=== PATIENT | female | born 1930 | race Caucasian/White ===

== ENCOUNTER 2017-12-13 12:51 | Emergency (ER) | payer MEDICARE, OTHER ==
[2017-12-13 12:57] VITALS: BP 147/63; PULSE 54; RESP 20; TEMP 97.6; O2SAT 100
[2017-12-13] MEDS ORDERED: BUME1TAB PO (14:07)
[2017-12-13] MEDS ORDERED: FAMO20TA2 PO (14:07)
[2017-12-13] MEDS ORDERED: SPIR50TA PO (14:07)
[2017-12-13] MEDS ORDERED: METO-484 PO (14:07)
[2017-12-13] MEDS ORDERED: VITA3000 PO (14:07)
[2017-12-13] MEDS ORDERED: LEVO25TA4 PO (14:07)
[2017-12-13] MEDS ORDERED: DULO1CAP2 PO (14:07)
--- NOTE | 2017-12-13 14:32 | PD ---
HPI Chief Complaint: Fall Time Seen by Provider: 14:21 Travel History International Travel<30 days: No Contact w/Intl Traveler<30days: No Traveled to known affect area: No History of Present Illness HPI This 87-year-old female is brought for evaluation of possible head injury. She says that last night she fell into her bathtub. She apparently hit the back of her head did not think she blacked out but she is not sure. She has been feeling dizzy and has been a bit lightheaded since then. She went to see Dr. Jennings today and he told her to come here. She does feel tired and has been nodding off to sleep. She does not take blood thinners. She does have a history of Parkinson's. Falling has been a problem for her in the past PFSH Past Medical History Diminished Hearing: No Hypertension: Yes Parkinson's Disease: Yes Thyroid Disease: Yes Tetanus Vaccination: Unknown Influenza Vaccination: No Past Surgical History Hysterectomy: Yes Other Surgery: Yes (prolapsed rectum) Social History Alcohol Use: Yes (occ) Tobacco Use: No Substance Use: No Allergies-Medications (Allergen,Severity, Reaction): Coded Allergies: ibuprofen (Verified Allergy, Unknown, 12/13/17) Reported Meds & Prescriptions Reported Meds & Active Scripts Active Reported Spironolactone 50 Mg Tab 50 Mg PO DAILY Metoprolol-Hydrochlorothiazide 25-12.5 Mg Tab 1 Tab PO DAILY Levothyroxine (Levothyroxine Sodium) 25 Mcg Tab 25 Mcg PO DAILY Famotidine 20 Mg Tab 20 Mg PO BID Duloxetine DR (Duloxetine HCl) 30 Mg Capdr 30 Mg PO DAILY Vitamin D3 (Cholecalciferol) 3,000 Unit Tab 3,000 Units PO DAILY Bumetanide 1 Mg Tab 1 Mg PO BID Review of Systems General / Constitutional: No: Fever, Chills Eyes: No: Diploplia HENT: No: Headaches Cardiovascular: No: Chest Pain or Discomfort, Palpitations Respiratory: No: Cough, Shortness of Breath Gastrointestinal: No: Nausea Genitourinary: No: Urgency, Frequency Musculoskeletal: No: Myalgias Skin: No Rash, No Itching Neurologic: Positive: Weakness, No: Syncope, Focal Abnormalities, Change in Mentation Endocrine: No: Heat Intolerance, Cold Intolerance Hematologic/Lymphatic: No: Easy Bruising Physical Exam Narrative GENERAL: She does have a tendency to fall asleep she wakes easily and is alert SKIN: Focused skin assessment warm/dry. HEAD: There is tenderness and swelling in the occipital portion of the scalp. normocephalic. EYES: Pupils equal and round. No scleral icterus. No injection or drainage. ENT: No nasal bleeding or discharge. Mucous membranes pink and moist. NECK: Trachea midline. No JVD. CARDIOVASCULAR: Regular rate and rhythm. No murmur appreciated. RESPIRATORY: No accessory muscle use. Clear to auscultation. Breath sounds equal bilaterally. GASTROINTESTINAL: Abdomen soft, non-tender, nondistended. Hepatic and splenic margins not palpable. MUSCULOSKELETAL: No obvious deformities. No clubbing. No cyanosis. No edema. NEUROLOGICAL: Awake and alert. No obvious cranial nerve deficits. Motor grossly within normal limits. Normal speech. PSYCHIATRIC: Appropriate mood and affect; insight and judgment normal. Data Data Last Documented VS Vital Signs Date Time Temp Pulse Resp B/P (MAP) Pulse Ox O2 Delivery O2 Flow Rate FiO2 12/13/17 14:58 20 12/13/17 12:57 97.6 54 147/63 (91) 100 Orders Orders Femur (Ap & Lat/2vws) (12/13/17 14:27) Ct Brain W/O Iv Contrast(Rout) (12/13/17 14:27) Ct Cerv Spine W/O Contrast (12/13/17 14:27) Complete Blood Count With Diff (12/13/17 14:32) Comprehensive Metabolic Panel (12/13/17 14:32) Prothrombin Time / Inr (Pt) (12/13/17 14:32) Act Partial Throm Time (Ptt) (12/13/17 14:32) Labs Laboratory Tests Test 12/13/17 14:50 White Blood Count 8.2 TH/MM3 Red Blood Count 3.44 MIL/MM3 Hemoglobin 11.2 GM/DL Hematocrit 32.7 % Mean Corpuscular Volume 95.1 FL Mean Corpuscular Hemoglobin 32.7 PG Mean Corpuscular Hemoglobin Concent 34.4 % Red Cell Distribution Width 12.4 % Platelet Count 283 TH/MM3 Mean Platelet Volume 7.8 FL Neutrophils (%) (Auto) 60.5 % Lymphocytes (%) (Auto) 24.4 % Monocytes (%) (Auto) 10.0 % Eosinophils (%) (Auto) 3.0 % Basophils (%) (Auto) 2.1 % Neutrophils # (Auto) 5.0 TH/MM3 Lymphocytes # (Auto) 2.0 TH/MM3 Monocytes # (Auto) 0.8 TH/MM3 Eosinophils # (Auto) 0.2 TH/MM3 Basophils # (Auto) 0.2 TH/MM3 CBC Comment DIFF FINAL Differential Comment Prothrombin Time 10.6 SEC Prothromb Time International Ratio 1.0 RATIO Activated Partial Thromboplast Time 23.5 SEC Blood Urea Nitrogen 39 MG/DL Creatinine 1.60 MG/DL Random Glucose 86 MG/DL Total Protein 8.0 GM/DL Albumin 3.9 GM/DL Calcium Level 9.4 MG/DL Alkaline Phosphatase 80 U/L Aspartate Amino Transf (AST/SGOT) 19 U/L Alanine Aminotransferase (ALT/SGPT) 10 U/L Total Bilirubin 0.5 MG/DL Sodium Level 137 MEQ/L Potassium Level 4.0 MEQ/L Chloride Level 102 MEQ/L Carbon Dioxide Level 27.6 MEQ/L Anion Gap 7 MEQ/L Estimat Glomerular Filtration Rate 30 ML/MIN [facility] Medical Decision Making Medical Screen Exam Complete: Yes Emergency Medical Condition: Yes Medical Record Reviewed: Yes Differential Diagnosis Differential diagnosis includes subdural hemorrhage, skull fracture, contusion, fracture femur Narrative Course X-ray of the leg is negative for fracture. CT scan of the brain is negative for hemorrhage or fracture. CT of the neck is negative for fracture blood work was checked. Her hemoglobin is 11 2. Her BUN is 39 with creatinine of 1.6 I will encourage her to drink more fluids Diagnosis Primary Impression: Contusion of head Additional Instructions: drink More fluids Disposition: 01 DISCHARGE HOME Condition: Stable Erasto Smyth MD December 13, 2017 14:32
[2017-12-13 15:01] LABS: BASOPHIL # 0.2 TH/MM3 (0-0.2); BASOPHIL % 2.1 % (0.0-2.0); EOSINOPHIL # 0.2 TH/MM3 (0-0.4); HEMATOCRIT 32.7 % (35.0-46.0); HEMOGLOBIN 11.2 GM/DL (11.6-15.3); LYMPH % 24.4 % (9.0-44.0); MEAN CELL VOLUME 95.1 FL (80.0-100.0); MEAN CORPUSCULAR HEMOGLOBIN 32.7 PG (27.0-34.0); MEAN CORPUSCULAR HGB CONC 34.4 % (32.0-36.0); MEAN PLATELET VOLUME 7.8 FL (7.0-11.0); MONOCYTE # 0.8 TH/MM3 (0-0.9); NEUT % 60.5 % (16.0-70.0); PLATELET COUNT 283 TH/MM3 (150-450); RED BLOOD COUNT 3.44 MIL/MM3 (4.00-5.30); RED CELL DISTRIBUTION WIDTH 12.4 % (11.6-17.2); WHITE BLOOD COUNT 8.2 TH/MM3 (4.0-11.0)
[2017-12-13 15:10] LABS: CHLORIDE 102 MEQ/L (98-107); SODIUM (NA) 137 MEQ/L (136-145)
[2017-12-13 15:15] LABS: ALBUMIN 3.9 GM/DL (3.4-5.0); CALCIUM 9.4 MG/DL (8.5-10.1)
[2017-12-13 15:16] LABS: BICARBONATE 27.6 MEQ/L (21.0-32.0); BLOOD UREA NITROGEN 39 MG/DL (7-18); GLUCOSE,RANDOM 86 MG/DL (74-106); PROTHROMBIN TIME - PATIENT 10.6 SEC (9.8-11.6)
[2017-12-13 15:18] LABS: ALT (GPT) 10 U/L (10-53)
[2017-12-13 15:19] LABS: AST (GOT) 19 U/L (15-37); GLOMERULAR FILTRATION RATE 30 ML/MIN (>89)
[2017-12-13 15:20] LABS: TOTAL BILIRUBIN ADULT 0.5 MG/DL (0.2-1.0)
[2017-12-13 15:22] LABS: ALKALINE PHOSPHATASE 80 U/L (45-117)
--- NOTE | 2017-12-13 15:28 | RADRPT ---
EXAM DATE: 12/13/2017 3:21 PM EDT AGE/SEX: 87 years / Female INDICATIONS: Right proximal femur pain post fall today CLINICAL DATA: This is the patient's initial encounter. Patient reports that signs and symptoms have been present for 1 day and indicates a pain score of 5/10. MEDICAL/SURGICAL HISTORY: None. None. COMPARISON: No prior [facility] exams available for comparison. FINDINGS: No fractures seen. The hip and knee joints are aligned. There is chondrocalcinosis seen at the knee j oint. There is a area of calcification seen posterior to the femoral condyles on the lateral view whi ch could be related to the calcification within a Wills's cyst. There does appear to be some soft tis mary swelling at the superficial fat at the lateral mid thigh. Osseous density is normal. No radiopaq ue foreign bodies seen. CONCLUSION: No acute abnormality seen. Chondrocalcinosis at the knee joint. Electronically signed by: Ryan Wagner MD 12/13/2017 3:27 PM EDT
--- NOTE | 2017-12-13 16:35 | RADRPT ---
EXAM DATE: 12/13/2017 4:31 PM EDT AGE/SEX: 87 years / Female INDICATIONS: Trauma. Fell last night and hit head. CLINICAL DATA: This is the patient's initial encounter. Patient reports that signs and symptoms have been present for 1 day and indicates a pain score of 4/10. MEDICAL/SURGICAL HISTORY: Hypertension. Parkinson's disease. Hysterectomy. RADIATION DOSE: 64.11 CTDI (mGy) COMPARISON: No prior [facility] exams available for comparison. TECHNIQUE: CT of the head without contrast. Using automated exposure control and adjustment of the mA and/or kV according to patient size, radiation dose was kept as low as reasonably achievable to ob tain optimal diagnostic quality images. FINDINGS: Cerebrum: The ventricles and cortical sulci are mildly widened. No evidence of midline shift, mass lesion, hemorrhage or acute infarction. No extraaxial fluid collections are seen. Posterior Fossa: The cerebellum and brainstem are intact. The 4th ventricle is midline. The cerebe llopontine angle is unremarkable. Extracranial: The visualized portion of the orbits is intact. There is soft tissue swelling and adiel yogesh in the posterior superior left parietal scalp region. Skull: The calvaria is intact. No evidence of skull fracture. CONCLUSION: 1. No acute abnormality is seen. 2. Mild age-related atrophy. 3. Left parietal scalp swelling and hematoma. Electronically signed by: Ryan Wagner MD 12/13/2017 4:34 PM EDT
--- NOTE | 2017-12-13 16:39 | RADRPT ---
EXAM DATE: 12/13/2017 4:33 PM EDT AGE/SEX: 87 years / Female INDICATIONS: Trauma. Fell last night and hit head. CLINICAL DATA: This is the patient's initial encounter. Patient reports that signs and symptoms have been present for 1 day and indicates a pain score of 4/10. MEDICAL/SURGICAL HISTORY: Hypertension. Parkinson's disease. Hysterectomy. RADIATION DOSE: 25.34 CTDI (mGy) COMPARISON: No prior [facility] exams available for comparison. TECHNIQUE: Contiguous axial images were obtained using helical multirow detector technique. The vol umetric data was post-processed with multiplanar reconstruction in oblique axial, sagittal, and coron al planes. Using automated exposure control and adjustment of the mA and/or kV according to patient s ize, radiation dose was kept as low as reasonably achievable to obtain optimal diagnostic quality naomy ges. Vertebrae: There is moderate diffuse primary bony degenerative changes, disc degeneration and disc s pace narrowing from C3 through C7. No compression fracture injuries are demonstrated. No acute bony f racture is demonstrated. Alignment: Normal. No subluxation. FINDINGS: C2-3: The bony spinal canal is normal in size. No evidence of disc bulge or herniation. The neural foramina are bilaterally patent. C3-4: The bony spinal canal is normal in size. No evidence of disc bulge or herniation. The neural foramina are bilaterally patent. Right-sided facet arthritis. C4-5: Mild broad-based bulging with disc osteophyte complex. The neural foramina are patent bilatera lly. C5-6: Mild broad-based bulging with disc osteophyte complex. The neural foramina are patent bilatera lly. Mild facet arthritis. C6-7: The bony spinal canal is normal in size. No evidence of disc bulge or herniation. The neural foramina are bilaterally patent. C7-T1: The bony spinal canal is normal in size. No evidence of disc bulge or herniation. The neura l foramina are bilaterally patent. CONCLUSION: 1. No acute bony fracture. 2. Moderate diffuse primary bony degenerative changes, disc degeneration and disc space narrowing fr om C3 through C7. 3. Broad-based bulging with disc osteophyte complexes at C4-5 and C5-6. Electronically signed by: Chao Garza MD 12/13/2017 4:38 PM EDT
== END 2017-12-13 17:42 | disposition home or self-care (01) ==
LOC: PHED 12:51
DX: S00.03XA Contusion of scalp, initial encounter (principal); W18.2XXA Fall in (into) shower or empty bathtub, initial encounter; I10 Essential (primary) hypertension; G20 Parkinson's disease; Z91.81 History of falling; Z88.6 Allergy status to analgesic agent; Z79.899 Other long term (current) drug therapy
CPT/HCPCS: 70450; 72125; 73552; 80053; 85025; 85610; 85730; 99285